=== PATIENT | female | born 1950 | race Caucasian/White ===

== ENCOUNTER 2020-05-05 12:46 | Inpatient (IN) | payer MEDICARE ==
[~2020-05-05] VITALS: Ht 170.1 cm; Wt 122.2 kg
[~2020-05-05 12:46] MED LIST: CARDIZEM CD180 MG PO; GLIPIZIDE10 MG PO; LISINOPRIL AND1 TA1 PO; METFORMIN500 MG PO; METOPROLOL SR50 MG PO; NOVOLOG 70/30 M10 ML; NOVOLOG MIX 70/33 ML; PERCOCET 325 MG1 TA2 PO
[2020-05-05 12:55] VITALS: BP 146/82
--- NOTE | 2020-05-05 13:10 | NUR ---
BED ON FOWLERS POSITION PER PT REQUEST BED IN LOWEST POSITION BED RAILS UP X 2 CALL LIGHT IN REACH PT REQUEST WATER
[2020-05-05] MEDS ORDERED: FUROSEMIDE40 MG PO (13:19)
[2020-05-05] MEDS ORDERED: TELMISARTAN40 M1 PO (13:20)
[2020-05-05] MEDS ORDERED: MINIPRESS2 M2 PO (13:21)
--- NOTE | 2020-05-05 13:29 | NUR ---
PATIENT RESTING AT THIS TIME. CALL LIGHT IN REACH. PROVIDER WATER THAT WAS APPROVED BY PHYSICIAN. WILL CONTINUE TO MONITOR PT.
[2020-05-05 13:35] LABS: BASO % 0.1 % (0.0-1.0); EOS % 0.1 % (1.0-4.0); HEMATOCRIT 36.2 % (37.0-47.0); LYMPH # 0.5 10*3/uL (1.3-4.4); LYMPH % 7.5 % (27.0-41.0); MEAN CELL VOLUME 88.5 fl (81.0-99.0); MEAN CORPUSCULAR HGB 28.4 pg (27.0-31.0); MEAN PLATELET VOLUME 9.3 fl (9.6-12.3); MONO # 0.4 10*3/uL (0.1-1.0); MONO % 6.4 % (3.0-9.0); NEUT # 5.7 10*3/uL (2.3-7.9); NEUT % 85.5 % (47.0-73.0); PLATELET COUNT AUTOMATED 376 10*3/uL (130-400); RED BLOOD COUNT 4.09 10*6/uL (4.10-5.10); RED CELL DISTRI WIDTH 13.3 % (0-14.5); WHITE BLOOD COUNT 6.7 10*3/uL (4.8-10.8)
[2020-05-05 13:50] LABS: ALBUMIN 2.5 gm/dl (3.1-4.5); ALKALINE PHOSPHATASE 83 U/L (45-117); BUN 15 mg/dl (7-24); CHLORIDE 103 mmol/L (98-107); CREATININE 0.71 mg/dL (0.55-1.02); POTASSIUM 4.2 mmol/L (3.5-5.1); SGOT/AST 51 IU/L (3-35); SGPT/ALT 31 U/L (12-78); SODIUM 135 mmol/L (136-145); TOTAL PROTEIN 7.1 gm/dL (6.4-8.2)
[2020-05-05 13:51] LABS: TROPONIN I < 0.015 ng/ml (<0.045)
--- NOTE | 2020-05-05 13:58 | NUR ---
THE PATIENT VERBALIZES PERMISSION TO GIVE HER DAUGHTER ARJUN AN UPDATE REGARDING HER VISIT.
--- NOTE | 2020-05-05 14:02 | NUR ---
I SPOKE TO THE PATIENTS DAUGHTER AND UPDATED HER ON HER MOTHERS VISIT. HER DAUGHTER ARJUN LEFT HER TELEPHONE NUMBER IF NEED TO GET IN CONTACT WITH HER. DAUGHTERS NAME IS ARJUN AND HER PHONE NUMBER IS [phone]
--- NOTE | 2020-05-05 15:00 | NUR ---
PATIENT ASSISTED TO THE BED SIDE COMMODE. PT DID VOID. ASSISTED BACK TO BED. PATIENT PROVIDED MORE ICE CHIPS. RESTING AT THIS TIME. CALL LIGHT IN REACH. WILL CONTINUE TO MONITOR PT.
--- NOTE | 2020-05-05 16:03 | NUR ---
PHARMACY WAS CONTACTED IN REGARD TO OBTAINING THE PATIENTS ZITHROMAX AND ROCEPHIN. NOTIFIED AND THE STAFF STATES THAT THEY WILL SEND IT DOWN.
--- NOTE | 2020-05-05 16:36 | NUR ---
A CALL TO DR FINLEY OFFICE WAS MADE FOR CONSULT. STAFF STATES THAT HE WILL CALL BACK IN 15-20 MINUTES.
--- NOTE | 2020-05-05 17:02 | NUR ---
DR FINLEY WAS CONTACTED AT [phone] AND WAS NOTIFIED OF THE PATIENT AND HER CURRENT VISIT. DR FINLEY STATED HE WILL CALL BACK IF HE HAS ANY FURTHER QUESTIONS. PATIENT IS RETING AT THIS TIME. WILL CONTINUE TO MONITOR. CALL LIGHT IN REACH.
--- NOTE | 2020-05-05 17:12 | NUR ---
I CONTACTED DR ASHLEY OFFICE AT [phone] AND SPOKE TO THE ANSWERING SERVICES. INFORMATION WAS GIVEN TO THE STAFF STATES THAT THEY WILL CONTACT THE PHYSICIAN.
--- NOTE | 2020-05-05 17:13 | NUR ---
PATIENTS DAUGHTER CALLED FOR AN UPDATE. INFORMED THAT THE PATIENT WAS BEING ADMITTED.
--- NOTE | 2020-05-05 17:25 | NUR ---
I SPOKE TO DR FINLEY REGARDING THE PATIENT. DR FINLEY REQUEST THAT BLOOD GASES BE DRAWN ON THE PATIENT AND THE PATIENT BE STARTED ON 6MG OF DECADRON DAILY FOR THE NEXT [address] FINLEY REQUEST THAT HE BE CALLED WITH THE BLOOD GAS RESULTS.
--- NOTE | 2020-05-05 17:25 | NUR ---
I SPOKE TO DR FINLEY
[2020-05-05 17:31] VITALS: BP 170/81
--- NOTE | 2020-05-05 17:38 | NUR ---
I SPOKE TO DR GUTHRIE REGARDING THE PATIENT. SHE REQUEST THAT A CRP BE ORDERED AND THAT SHE WILL SEE THE PATIENT.
[2020-05-05 17:57] LABS: ABG BASE EXCESS -3.1 mmol/L (-2.0-2.0); ARTERIAL BLOOD GAS PH 7.438 (7.35-7.45)
--- NOTE | 2020-05-05 18:15 | NUR ---
THE 4TH FLOOR WAS CONTACTED REGARDING THE PATIENT. STAFF IS SETTING UP A FILTER FOR THE ROOM.
--- NOTE | 2020-05-05 19:30 | NUR ---
PATIENT TOLERATED A POPSICLE. RESTING. CALL LIGHT IN REACH.
--- NOTE | 2020-05-05 20:16 | NUR ---
PATIENT IS RESTING AT THIS TIME. CALL LIGHT IN REACH. PATIENT HAS NO COMPLAINTS AT THIS TIME.
--- NOTE | 2020-05-05 20:40 | NUR ---
PATIENT IS RESTING AT THIS TIME. CALL LIGHT IN REACH. WILL CONTINUE TO MONITOR.
--- NOTE | 2020-05-05 21:23 | NUR ---
PATIENT IS RESTING AT THIS TIME. CALL LIGHT IN REACH. WILL CONTINUE TO MONITOR PATIENT.
[2020-05-05 21:24] VITALS: BP 159/81
[2020-05-05 22:21] VITALS: BP 150/61
--- NOTE | 2020-05-05 22:21 | NUR ---
A 69, admitted to , under the services of TRACY Whaley DO with a diagnosis of COVID 19. Chief complaint is OB. Patient arrived via bed from ER. Monitor applied. Initial assessment completed. Vital signs taken and recorded. TRACY WHALEY DO notified of admission to the unit. Orders received. See assessment for past medical history, medications and allergies. Patient and/or family oriented to unit. [facility] visitation policy reviewed. Clothing/patient valuable form completed. ONEIL GUERRA
[2020-05-05 22:30] VITALS: BP 156/86
--- NOTE | 2020-05-05 22:30 | NUR ---
PATIENT IS RESTING. SHE IS BEING TAKEN UP TO ROOM 405. RESTING
--- NOTE | 2020-05-05 23:30 | NUR ---
PT REFUSING FLU SWAB AT THIS TIME. PT STATES "IM TIRED AND JUST WANT TO SLEEP. CAN WE DO THIS TOMORROW"
[2020-05-06] VITALS: BP 170/76
--- NOTE | 2020-05-06 00:30 | NUR ---
DR. NETTLES NOTIFED OF ELEVATED BP 170/76. ORDERS RECEIVED
[2020-05-06 07:32] LABS: EOS # 0.1 10*3/uL (0.0-0.4); EOS % 1.6 % (1.0-4.0); HEMATOCRIT 33.1 % (37.0-47.0); LYMPH # 0.8 10*3/uL (1.3-4.4); LYMPH % 16.6 % (27.0-41.0); MEAN CELL VOLUME 89.5 fl (81.0-99.0); MEAN CORPUSCULAR HGB 29.2 pg (27.0-31.0); MEAN CORPUSCULAR HGB CONC 32.6 g/dl (33.0-37.0); MEAN PLATELET VOLUME 9.3 fl (9.6-12.3); MONO # 0.5 10*3/uL (0.1-1.0); NEUT # 3.6 10*3/uL (2.3-7.9); NEUT % 72.2 % (47.0-73.0); PLATELET COUNT AUTOMATED 377 10*3/uL (130-400); RED CELL DISTRI WIDTH 13.3 % (0-14.5)
[2020-05-06 07:50] LABS: ALBUMIN 2.3 gm/dl (3.1-4.5); ALKALINE PHOSPHATASE 78 U/L (45-117); BUN 16 mg/dl (7-24); CHLORIDE 106 mmol/L (98-107); CREATININE 0.76 mg/dL (0.55-1.02); LDH 421 U/L (84-246); POTASSIUM 4.2 mmol/L (3.5-5.1); SGOT/AST 41 IU/L (3-35); SGPT/ALT 25 U/L (12-78); SODIUM 137 mmol/L (136-145); TOTAL PROTEIN 6.6 gm/dL (6.4-8.2)
[2020-05-06 07:52] LABS: CPK 134 U/L (26-192)
[2020-05-06 08:00] VITALS: BP 141/50
--- NOTE | 2020-05-06 09:00 | NUR ---
Janitorial Cleaner in to talk to patient. Patient states lives at home with . There are no steps in the home. Physician: emeli Pharmacy: Home health services: none Patient's level of ADLs: INDEPENDENT Patient has working utilities: all working DME: none Follow-up physician's appointment after d/c: will be made by hospitalist nurse director upon discharge Does patient want to access PORTAL?: no Discharge plan discussed with patient. she states she lives at home with her , she is independent in adls and ambulation, she states she would like to return home when discharged. case management will follow to see if patient is physically able to return home,, covid is pending, she is currently onl 3l/min, no home oxygen. VEGA PHAM
[2020-05-06 09:06] LABS: VITAMIN D, 25-HYDROXY 45.2 ng/mL (30-100)
[2020-05-06 09:07] LABS: FERRITIN 752.6 ng/mL (10.0-291.0)
[2020-05-06 12:00] VITALS: BP 147/64
[2020-05-06 16:00] VITALS: BP 188/72
--- NOTE | 2020-05-06 16:17 | NUR ---
NOTIFIED OF ELEVATED BP
[2020-05-06 20:00] VITALS: BP 152/78
[2020-05-07] VITALS: BP 164/58; BP 180/62
[2020-05-07 04:00] VITALS: BP 186/72
--- NOTE | 2020-05-07 04:01 | NUR ---
NOTIFIED DR. NETTLES OF PATIENT BLOOD PRESSUE, 186/72. SEE NEW ORDERS.
[2020-05-07 05:34] LABS: ALBUMIN 2.3 gm/dl (3.1-4.5); ALKALINE PHOSPHATASE 77 U/L (45-117); BUN 17 mg/dl (7-24); CHLORIDE 105 mmol/L (98-107); CPK 118 U/L (26-192); CREATININE 0.73 mg/dL (0.55-1.02); LDH 407 U/L (84-246); POTASSIUM 4.2 mmol/L (3.5-5.1); SGOT/AST 37 IU/L (3-35); SGPT/ALT 25 U/L (12-78); SODIUM 135 mmol/L (136-145); TOTAL PROTEIN 6.8 gm/dL (6.4-8.2)
[2020-05-07 06:16] LABS: MEAN CELL VOLUME 88.3 fl (81.0-99.0); MEAN CORPUSCULAR HGB 28.6 pg (27.0-31.0); MEAN CORPUSCULAR HGB CONC 32.4 g/dl (33.0-37.0); MEAN PLATELET VOLUME 9.9 fl (9.6-12.3); PLATELET COUNT AUTOMATED 465 10*3/uL (130-400); RED BLOOD COUNT 3.85 10*6/uL (4.10-5.10); WHITE BLOOD COUNT 5.9 10*3/uL (4.8-10.8)
[2020-05-07 07:19] LABS: BURR CELLS FEW; PLATELET SUFFICIENCY HIGH (NORMAL); POLYCHROMASIA SLIGHT; TOTAL CELLS COUNTED 100 #CELLS
[2020-05-07 08:00] VITALS: BP 143/59
[2020-05-07 08:10] LABS: ARTERIAL BLOOD GAS PH 7.464 (7.35-7.45)
--- NOTE | 2020-05-07 09:00 | NUR ---
case management again talked to patient via phone, discussed with her a [place] term [place] [facility] [place] and educated her she would receive 5 days of rehab and 24 hour care. she was receptive to this, covid is pending, given the choice of facilities she chose [facility]. media planner / buyer will send referral to [facility]. case management will follow
--- NOTE | 2020-05-07 11:53 | NUR ---
case management received a message that patient's covid testingis positive. she is unable to be referred to [facility] due to them not taking covid positive patients. supply planner will see what facilities will take a covid positive and talk with patient
[2020-05-07 12:00] VITALS: BP 172/62
--- NOTE | 2020-05-07 12:02 | NUR ---
turnaround planner is having difficulty finding a nursing facility that will accept at cate positive. case management talked with patient again regarding discharge plan and possibly returning home with [facility]. educated her on the services they provide. she states her only problem with going home is she has alot of steps to get into her home and her also has covid and is unable to help her get into her home, educated her that hospital could get her an ambulance ride home, patient was agreeable to this, she chose [facility] to follow her at home. will notify [facility] when patient is medically stable for discharge
[2020-05-07 13:26] LABS: ABG BASE EXCESS -0.1 mmol/L (-2.0-2.0); ARTERIAL BLOOD GAS PH 7.489 (7.35-7.45)
--- NOTE | 2020-05-07 14:39 | NUR ---
patient referal faxed to [facility]
[2020-05-07 17:50] LABS: ABG BASE EXCESS -1.6 mmol/L (-2.0-2.0); ARTERIAL BLOOD GAS PH 7.472 (7.35-7.45)
[2020-05-07 20:00] VITALS: BP 146/54
[2020-05-08] VITALS: BP 146/63
[2020-05-08 06:12] LABS: ALBUMIN 2.8 gm/dl (3.1-4.5); ALKALINE PHOSPHATASE 76 U/L (45-117); BUN 18 mg/dl (7-24); CHLORIDE 103 mmol/L (98-107); CPK 108 U/L (26-192); CREATININE 0.84 mg/dL (0.55-1.02); LDH 399 U/L (84-246); POTASSIUM 3.8 mmol/L (3.5-5.1); SGOT/AST 33 IU/L (3-35); SGPT/ALT 24 U/L (12-78); SODIUM 136 mmol/L (136-145)
[2020-05-08 06:13] LABS: HEMATOCRIT 34.7 % (37.0-47.0); MEAN CELL VOLUME 88.3 fl (81.0-99.0); MEAN CORPUSCULAR HGB 28.8 pg (27.0-31.0); MEAN CORPUSCULAR HGB CONC 32.6 g/dl (33.0-37.0); MEAN PLATELET VOLUME 9.5 fl (9.6-12.3); PLATELET COUNT AUTOMATED 553 10*3/uL (130-400); RED BLOOD COUNT 3.93 10*6/uL (4.10-5.10); RED CELL DISTRI WIDTH 13.1 % (0-14.5); WHITE BLOOD COUNT 7.9 10*3/uL (4.8-10.8)
--- NOTE | 2020-05-08 07:27 | NUR ---
Shift chart check completed.24 HR chart check completed.
[2020-05-08 07:40] LABS: TOTAL CELLS COUNTED 100 #CELLS
[2020-05-08 07:41] LABS: PLATELET SUFFICIENCY HIGH (NORMAL)
[2020-05-08 07:42] LABS: BURR CELLS FEW
[2020-05-08 08:00] VITALS: BP 147/66
[2020-05-08 08:10] VITALS: BP 118/50
[2020-05-08 08:26] LABS: ABG BASE EXCESS 1.5 mmol/L (-2.0-2.0); ARTERIAL BLOOD GAS PH 7.491 (7.35-7.45)
--- NOTE | 2020-05-08 09:00 | NUR ---
case management talks with patient, she states she will return home when discharged and will have [facility], case management will notify [facility] when patient is discharged
--- NOTE | 2020-05-08 10:34 | NUR ---
ON ASSESSMENT PATIENT DOESN'T "FEEL GOOD TODAY". SHE'S "WINDED". OBESITY. EASILY FATIGUED.
[2020-05-08 12:00] VITALS: BP 150/65
[2020-05-08 16:00] VITALS: BP 158/62
[2020-05-08 20:00] VITALS: BP 138/80
--- NOTE | 2020-05-08 21:45 | NUR ---
PT REPOSITIONED SELF IN BED. RESP-EASY AND REGULAR. OXYGEN IN USE. TOLERATED ROUTINE MED WITH NO PROBLEM. BSG-[id number], SEE EMAR. CALL LIGHT IN REACH. SEE SHIFT ASSESSMENT.
[2020-05-09] VITALS: BP 154/53
--- NOTE | 2020-05-09 00:10 | NUR ---
PT RESTING IN BED. RESP-EASY AND REGULAR. OXYGEN IN USE. NO C/O AT THIS TIME. CALL LIGHT IN REACH. SEE SHIFT ASSESSMENT.
--- NOTE | 2020-05-09 04:30 | NUR ---
SLEEPING IN BED, RESP-EASY AND REGULAR. CALL LIGHT IN REACH.
--- NOTE | 2020-05-09 06:00 | NUR ---
RESTING IN BED WITH EYES CLOSED. AWAKENS EASILY. RESP-EASY AND REGULAR. NO C/O AT THIS TIME. CALL LIGHT IN REACH.
[2020-05-09 06:28] LABS: HEMATOCRIT 33.5 % (37.0-47.0); MEAN CELL VOLUME 88.9 fl (81.0-99.0); MEAN CORPUSCULAR HGB 28.4 pg (27.0-31.0); MEAN CORPUSCULAR HGB CONC 31.9 g/dl (33.0-37.0); MEAN PLATELET VOLUME 9.4 fl (9.6-12.3); PLATELET COUNT AUTOMATED 511 10*3/uL (130-400); RED BLOOD COUNT 3.77 10*6/uL (4.10-5.10); WHITE BLOOD COUNT 8.3 10*3/uL (4.8-10.8)
[2020-05-09 06:32] LABS: ALBUMIN 2.6 gm/dl (3.1-4.5); ALKALINE PHOSPHATASE 70 U/L (45-117); BUN 19 mg/dl (7-24); CHLORIDE 104 mmol/L (98-107); POTASSIUM 4.4 mmol/L (3.5-5.1); SGOT/AST 31 IU/L (3-35); SGPT/ALT 24 U/L (12-78); SODIUM 135 mmol/L (136-145); TOTAL PROTEIN 6.5 gm/dL (6.4-8.2)
[2020-05-09 07:01] LABS: PLATELET SUFFICIENCY HIGH (NORMAL); TOTAL CELLS COUNTED 100 #CELLS
[2020-05-09 08:30] LABS: ABG BASE EXCESS 1.4 mmol/L (-2.0-2.0); ARTERIAL BLOOD GAS PH 7.461 (7.35-7.45)
[2020-05-09 12:00] VITALS: BP 121/75
--- NOTE | 2020-05-09 14:55 | NUR ---
0800 Assumed care of pt. Report received, pt AOX4, resting in bed. Bed in low position, call light in reach, all needs met at this time. COVID isolation maintained. Will continue to monitor. 1130 Family member called for update, caller provided password, update given. 1430 Pt received last dose of IV Remdesivir.
[2020-05-09 16:00] VITALS: BP 147/56
[2020-05-09 20:00] VITALS: BP 166/66
[2020-05-10] VITALS (7 sets, daily range): BP systolic 104–171; BP diastolic 49–90
--- NOTE | 2020-05-10 02:27 | NUR ---
DR. PIERCE, RESIDENT LENS EXAMINER, CONTACTED AT THIS TIME CONCERNING PT'S BP. BP HAS BEEN 160-170'S/60'S FOR THIS SHIFT. NO PRN MEDICATIONS ORDERED. PT DENIES ANY CONCERNS. ORDERS RECEIVED. WILL MONITOR CLOSELY FOR ACUTE CHANGES IN CONDITION.
[2020-05-10 06:30] LABS: HEMATOCRIT 34.1 % (37.0-47.0); MEAN CELL VOLUME 88.6 fl (81.0-99.0); MEAN CORPUSCULAR HGB 29.4 pg (27.0-31.0); MEAN CORPUSCULAR HGB CONC 33.1 g/dl (33.0-37.0); MEAN PLATELET VOLUME 9.4 fl (9.6-12.3); NUCLEATED RED BLOOD CELL 0.2 % (0.0-0.0); PLATELET COUNT AUTOMATED 485 10*3/uL (130-400); RED BLOOD COUNT 3.85 10*6/uL (4.10-5.10); RED CELL DISTRI WIDTH 13.3 % (0-14.5); WHITE BLOOD COUNT 9.2 10*3/uL (4.8-10.8)
[2020-05-10 06:46] LABS: ALBUMIN 2.6 gm/dl (3.1-4.5); ALKALINE PHOSPHATASE 71 U/L (45-117); BUN 20 mg/dl (7-24); CHLORIDE 108 mmol/L (98-107); CREATININE 0.67 mg/dL (0.55-1.02); POTASSIUM 3.9 mmol/L (3.5-5.1); SGOT/AST 34 IU/L (3-35); SGPT/ALT 29 U/L (12-78); SODIUM 140 mmol/L (136-145); TOTAL PROTEIN 6.4 gm/dL (6.4-8.2)
[2020-05-10 06:55] LABS: ATYPICAL LYMPHS 1 % (0-0); BURR CELLS FEW; PLATELET SUFFICIENCY HIGH (NORMAL); SCHISTOCYTES FEW; TOTAL CELLS COUNTED 100 #CELLS
[2020-05-10 08:39] LABS: ABG BASE EXCESS 1.6 mmol/L (-2.0-2.0); ARTERIAL BLOOD GAS PH 7.486 (7.35-7.45)
--- NOTE | 2020-05-10 09:13 | NUR ---
0700 Assumed care of pt. Pt AOX4 resting in bed. Pt on 2.5L O2. Clustered care performed due to COVID isolation precautions. VS obtained, pt assessed and daily medications given. Bed in low position, call light within reach. Pt voiding and moving bowels without difficulty. Will continue to monitor. 0830 Respiratory at bedside.
--- NOTE | 2020-05-10 17:30 | NUR ---
1730 PT'S ACCUCHECK RESULT 470, REPEATED FOR RESULT OF 471. CALL TO HOSPITALIST. PER HOSPITALIST, GIVE 22 UNITS NOW, RECHECK PT IN 1 HOUR. WILL CONTINUE TO MONITOR.
--- NOTE | 2020-05-10 18:57 | NUR ---
1857 PT'S ACCUCHECK REPEATED FOR VALUE OF 466. DR CUELLAR NOTIFIED, PER DR, ADDING ORDER FOR ADDITIONAL 22 UNITS HUMALOG. WILL CONTINUE TO MONITOR.
[2020-05-11] VITALS: BP 148/67
[2020-05-11 03:27] VITALS: BP 145/60
[2020-05-11 06:30] LABS: HEMATOCRIT 34.1 % (37.0-47.0); MEAN CELL VOLUME 88.8 fl (81.0-99.0); MEAN CORPUSCULAR HGB 28.4 pg (27.0-31.0); MEAN PLATELET VOLUME 9.3 fl (9.6-12.3); NUCLEATED RED BLOOD CELL 0.3 % (0.0-0.0); PLATELET COUNT AUTOMATED 492 10*3/uL (130-400); RED BLOOD COUNT 3.84 10*6/uL (4.10-5.10); RED CELL DISTRI WIDTH 13.3 % (0-14.5); WHITE BLOOD COUNT 10.3 10*3/uL (4.8-10.8)
[2020-05-11 06:44] LABS: CREATININE 0.67 mg/dL (0.55-1.02)
[2020-05-11 06:51] LABS: TOTAL CELLS COUNTED 100 #CELLS
[2020-05-11 06:52] LABS: BURR CELLS FEW; PLATELET SUFFICIENCY HIGH (NORMAL)
[2020-05-11 08:17] VITALS: BP 116/53
[2020-05-11 08:31] LABS: ABG BASE EXCESS 1.3 mmol/L (-2.0-2.0); ARTERIAL BLOOD GAS PH 7.471 (7.35-7.45)
--- NOTE | 2020-05-11 10:30 | NUR ---
0700 Assumed care of pt. Pt remainas on COVID isolation precautions. Pt AOX4, denies pain. Bed in low position, juanjo light in reach, personal care items provided per pt's request. Pt assessed, VS obtained. Call light in reach. will continue to monitor. 1030 Pt's O2 increased to 4L NC, based on ABG values. Will continue to monitor.
[2020-05-11 12:00] VITALS: BP 150/61
--- NOTE | 2020-05-11 13:15 | NUR ---
patient is a possibly discharge to home in next couple of days. there are no [facility] facilities that will accept a covid positive. case management will notify [facility] when patient is discharged. patient will be testing for home oxygen prior to discharge. city planner will attempt to get patient an ambulance transport home due to covid status and possibly new home oxygen, case management will follow
[2020-05-11 16:59] VITALS: BP 143/58
[2020-05-11 20:00] VITALS: BP 150/56
[2020-05-12] VITALS: BP 185/66
[2020-05-12 06:49] LABS: HEMATOCRIT 33.8 % (37.0-47.0); MEAN CELL VOLUME 89.7 fl (81.0-99.0); MEAN CORPUSCULAR HGB 29.4 pg (27.0-31.0); MEAN CORPUSCULAR HGB CONC 32.8 g/dl (33.0-37.0); MEAN PLATELET VOLUME 9.5 fl (9.6-12.3); PLATELET COUNT AUTOMATED 482 10*3/uL (130-400); RED BLOOD COUNT 3.77 10*6/uL (4.10-5.10); RED CELL DISTRI WIDTH 13.7 % (0-14.5); WHITE BLOOD COUNT 9.8 10*3/uL (4.8-10.8)
[2020-05-12 07:27] LABS: ABG BASE EXCESS 0.6 mmol/L (-2.0-2.0); ARTERIAL BLOOD GAS PH 7.439 (7.35-7.45)
[2020-05-12 07:30] LABS: ALBUMIN 2.5 gm/dl (3.1-4.5); CHLORIDE 106 mmol/L (98-107); POTASSIUM 4.1 mmol/L (3.5-5.1); SODIUM 138 mmol/L (136-145)
[2020-05-12 07:35] LABS: ALKALINE PHOSPHATASE 70 U/L (45-117); BUN 20 mg/dl (7-24); CREATININE 0.73 mg/dL (0.55-1.02); SGOT/AST 20 IU/L (3-35); SGPT/ALT 30 U/L (12-78)
[2020-05-12 07:44] LABS: PLATELET SUFFICIENCY HIGH (NORMAL); TOTAL CELLS COUNTED 100 #CELLS
[2020-05-12 08:00] VITALS: BP 138/59
--- NOTE | 2020-05-12 08:30 | NUR ---
PT RESTING. VSS. LUNG [place] DIM. OCC. PRODUCTIVE COUGH NOTED. ABD.SOFT WITH ACTIVE BOWEL SOUNDS. PT DENIES COMPLAINTS. NO ACUTE DISTRESS NOTED.
--- NOTE | 2020-05-12 11:30 | NUR ---
PATIENT ASSESSED FOR HOME O2, PO 95% HR 71 ON 4L. AFTER 10 MINUTES ON ROOM AIR SPO2 90% HR 73. PATIENT AMBULATED FROM BEDSIDE TO BATHROOM ON ROOM AIR. PATIENT STATES THIS IS THE APPROXIMATE DISTANCE SHE WOULD AMBULATE AT HOME, PATIENT UNABLE TO AMBULATE FURTHER, SPO2 DECREASED TO 89%. AFTER SPENDING SOME TIME IN THE BATHROOM ON ROOM AIR SPO2 DECREASED TO 85%. PATIENT PLACED ON 2L/M AND AMBULATED BACK TO CHAIR AT BEDSIDE. SPO2 REMAINED AT 90% OR GREATER. PATIENT LEFT ON 2 L/M ION [place] NOTIFIED PATIENT DID QUALIFY FOR HOME O2.
[2020-05-12 12:00] VITALS: BP 145/43
--- NOTE | 2020-05-12 12:47 | NUR ---
PT REMANS UP TO CHAIR. VSS. NO ACUTE DISTRESS MOTED.
--- NOTE | 2020-05-12 13:51 | NUR ---
DESIGN PRINTER BALLOON RECEIVED SCRIPT FOR HOME OXGYEN. DESIGN PRINTER BALLOON FAXED REFERRAL TO [facility] AND INFORMED UBALDO THE PATIENT IS A PROBABLE DISCHARGE. SHE STATED SHE WILL HAVE THE ORACLE EBS ARCHITECT BRING A TANK FOR THE PATIENT.
--- NOTE | 2020-05-12 15:23 | NUR ---
CONTACT NUMBER FOR [facility] [phone]. AFTER HOURS CALL LINE WILL NEED TO BE NOTIFIED OF WHEN PATIENT LEAVES. ENTRY LEVEL ACCOUNT EXECUTIVE NOTIFIED [facility]AN[facility] THAT THEY WILL NEED TO BE CALLED WHEN THE PATIENT LEAVES, THERE IS NO DISCHARGE ORDER AT THIS TIME.
[2020-05-12 16:00] VITALS: BP 135/46
[2020-05-12 20:00] VITALS: BP 145/60
--- NOTE | 2020-05-12 20:00 | NUR ---
Patient lying in bed, no distress noted. Patient states she is going home tomorrow. Oxygen tank at nurses station. She has card to call company for home O2. Patient denies any pain, or shortness of breath. Patient left with call light in reach.
--- NOTE | 2020-05-12 23:37 | NUR ---
24 HR chart check completed.
[2020-05-13] VITALS: BP 164/65
[2020-05-13 06:55] LABS: HEMATOCRIT 36.7 % (37.0-47.0); MEAN CELL VOLUME 89.1 fl (81.0-99.0); MEAN CORPUSCULAR HGB 28.6 pg (27.0-31.0); MEAN CORPUSCULAR HGB CONC 32.2 g/dl (33.0-37.0); MEAN PLATELET VOLUME 9.7 fl (9.6-12.3); PLATELET COUNT AUTOMATED 483 10*3/uL (130-400); RED BLOOD COUNT 4.12 10*6/uL (4.10-5.10); RED CELL DISTRI WIDTH 13.7 % (0-14.5); WHITE BLOOD COUNT 9.9 10*3/uL (4.8-10.8)
[2020-05-13 07:28] LABS: ALBUMIN 2.6 gm/dl (3.1-4.5); BUN 19 mg/dl (7-24); CHLORIDE 107 mmol/L (98-107); POTASSIUM 4.2 mmol/L (3.5-5.1); SODIUM 139 mmol/L (136-145)
[2020-05-13 07:39] LABS: ALKALINE PHOSPHATASE 64 U/L (45-117); SGOT/AST 18 IU/L (3-35); SGPT/ALT 28 U/L (12-78); TOTAL PROTEIN 6.2 gm/dL (6.4-8.2)
[2020-05-13 07:58] LABS: ABG BASE EXCESS 2.2 mmol/L (-2.0-2.0); ARTERIAL BLOOD GAS PH 7.459 (7.35-7.45)
[2020-05-13 08:00] VITALS: BP 131/46
[2020-05-13 08:03] LABS: PLATELET SUFFICIENCY HIGH (NORMAL); TOTAL CELLS COUNTED 100 #CELLS
--- NOTE | 2020-05-13 09:00 | NUR ---
case management talks with patient,. she is a possibly discharge to home today, portable oxygen tanks was delivered yesterday and jessica will set home home oxygen when she is discharged. case management will follow
--- NOTE | 2020-05-13 10:20 | NUR ---
Reviewed labs, o2 and pt statements regarding concern over getting into house due to lots of stairs to cling. Dr. Sam states that pt is not ready to go home today anyway after reviewing o2 requirements.
[2020-05-13 12:00] VITALS: BP 122/63
--- NOTE | 2020-05-13 12:55 | NUR ---
Arina from [facility] [phone] called and stated the patients oxygen can be set up at home if patient is discharged today. If patient is NOT discharged today, she will need to have a new home oxygen assessment
[2020-05-13] MEDS ORDERED: VENT7GM INH (13:10)
[2020-05-13] MEDS ORDERED: DECADRON6 M1 PO ×2 (13:11)
--- NOTE | 2020-05-13 13:27 | NUR ---
Notified Dr. Smalls who answered phone for Dr. Armstrong that Dr. Sam states that pt is not ready to be dc today from his standpoint based on this mornings ABGs. States she will pass this on to Dr. Armstrong.
[2020-05-13 16:00] VITALS: BP 130/45
[2020-05-13 20:00] VITALS: BP 124/48
--- NOTE | 2020-05-13 21:00 | NUR ---
Patient resting quietly with no c/o discomfort. Respirations easy and regular. Vital signs stable. No overt distress. OTF [facility]
[2020-05-14] VITALS: BP 152/65
--- NOTE | 2020-05-14 | NUR ---
Patient resting quietly with no c/o discomfort. Respirations easy and regular. Vital signs stable. No overt distress. OTF [facility]
--- NOTE | 2020-05-14 01:09 | NUR ---
24 HR chart check completed.
--- NOTE | 2020-05-14 04:00 | NUR ---
Patient resting quietly with no c/o discomfort. Respirations easy and regular. Vital signs stable. No overt distress. OTF [facility]
[2020-05-14 07:02] LABS: BASO % 0.3 % (0.0-1.0); EOS # 0.1 10*3/uL (0.0-0.4); EOS % 1.6 % (1.0-4.0); HEMATOCRIT 37.5 % (37.0-47.0); LYMPH # 1.8 10*3/uL (1.3-4.4); MEAN CELL VOLUME 90.6 fl (81.0-99.0); MONO # 0.8 10*3/uL (0.1-1.0); NEUT # 5.8 10*3/uL (2.3-7.9); NEUT % 66.5 % (47.0-73.0); PLATELET COUNT AUTOMATED 461 10*3/uL (130-400); RED BLOOD COUNT 4.14 10*6/uL (4.10-5.10); RED CELL DISTRI WIDTH 14.3 % (0-14.5); WHITE BLOOD COUNT 8.8 10*3/uL (4.8-10.8)
[2020-05-14 07:31] LABS: ALBUMIN 2.6 gm/dl (3.1-4.5); ALKALINE PHOSPHATASE 68 U/L (45-117); BUN 20 mg/dl (7-24); CHLORIDE 107 mmol/L (98-107); POTASSIUM 4.3 mmol/L (3.5-5.1); SGOT/AST 24 IU/L (3-35); SGPT/ALT 34 U/L (12-78); SODIUM 139 mmol/L (136-145); TOTAL PROTEIN 6.1 gm/dL (6.4-8.2)
[2020-05-14 08:20] VITALS: BP 118/60
[2020-05-14 08:45] LABS: ARTERIAL BLOOD GAS PH 7.472 (7.35-7.45)
--- NOTE | 2020-05-14 09:09 | NUR ---
O2 INCREASED TO [address] FINLEY. PO2 59 ON 2 L NC.
[2020-05-14 11:35] VITALS: BP 112/60
[2020-05-14 16:00] VITALS: BP 139/56
--- NOTE | 2020-05-14 16:43 | NUR ---
Dr. Chang notified of BSG x2 greater than 400. Glucometer read 435 and 419 on second test. Notified that coverage for > 400 is 22 units. States that is fine and he will review pt meds.
[2020-05-14 20:00] VITALS: BP 117/73
[2020-05-15] VITALS: BP 141/71
[2020-05-15 07:09] LABS: BASO % 0.4 % (0.0-1.0); EOS # 0.1 10*3/uL (0.0-0.4); EOS % 1.7 % (1.0-4.0); HEMATOCRIT 35.8 % (37.0-47.0); LYMPH # 1.3 10*3/uL (1.3-4.4); LYMPH % 16.2 % (27.0-41.0); MEAN CELL VOLUME 92.3 fl (81.0-99.0); MEAN CORPUSCULAR HGB 29.4 pg (27.0-31.0); MEAN CORPUSCULAR HGB CONC 31.8 g/dl (33.0-37.0); MEAN PLATELET VOLUME 10.1 fl (9.6-12.3); MONO # 0.9 10*3/uL (0.1-1.0); MONO % 11.2 % (3.0-9.0); NEUT # 5.6 10*3/uL (2.3-7.9); NEUT % 68.2 % (47.0-73.0); PLATELET COUNT AUTOMATED 377 10*3/uL (130-400); RED BLOOD COUNT 3.88 10*6/uL (4.10-5.10); RED CELL DISTRI WIDTH 14.5 % (0-14.5); WHITE BLOOD COUNT 8.2 10*3/uL (4.8-10.8)
[2020-05-15 07:34] LABS: ALBUMIN 2.4 gm/dl (3.1-4.5); BUN 15 mg/dl (7-24); CHLORIDE 107 mmol/L (98-107); CREATININE 0.68 mg/dL (0.55-1.02); LDH 212 U/L (84-246); POTASSIUM 4.4 mmol/L (3.5-5.1); SGOT/AST 16 IU/L (3-35); SGPT/ALT 27 U/L (12-78); SODIUM 138 mmol/L (136-145); TOTAL PROTEIN 5.6 gm/dL (6.4-8.2)
[2020-05-15 07:35] LABS: ALKALINE PHOSPHATASE 63 U/L (45-117); CPK 28 U/L (26-192)
[2020-05-15 08:00] VITALS: BP 123/62
[2020-05-15 12:00] VITALS: BP 120/54
[2020-05-15 16:00] VITALS: BP 115/57
[2020-05-15 20:00] VITALS: BP 113/42
[2020-05-16] VITALS: BP 126/45
[2020-05-16 07:14] LABS: BASO % 0.3 % (0.0-1.0); EOS # 0.2 10*3/uL (0.0-0.4); EOS % 1.9 % (1.0-4.0); HEMATOCRIT 34.2 % (37.0-47.0); LYMPH # 1.2 10*3/uL (1.3-4.4); LYMPH % 14.6 % (27.0-41.0); MEAN CELL VOLUME 92.7 fl (81.0-99.0); MEAN CORPUSCULAR HGB 29.3 pg (27.0-31.0); MEAN CORPUSCULAR HGB CONC 31.6 g/dl (33.0-37.0); MEAN PLATELET VOLUME 10.4 fl (9.6-12.3); MONO # 0.8 10*3/uL (0.1-1.0); MONO % 10.1 % (3.0-9.0); NEUT # 5.7 10*3/uL (2.3-7.9); NEUT % 71.8 % (47.0-73.0); PLATELET COUNT AUTOMATED 323 10*3/uL (130-400); RED BLOOD COUNT 3.69 10*6/uL (4.10-5.10); RED CELL DISTRI WIDTH 14.6 % (0-14.5); WHITE BLOOD COUNT 7.9 10*3/uL (4.8-10.8)
[2020-05-16 07:32] LABS: ALBUMIN 2.4 gm/dl (3.1-4.5); ALKALINE PHOSPHATASE 62 U/L (45-117); BUN 13 mg/dl (7-24); CHLORIDE 107 mmol/L (98-107); CPK 25 U/L (26-192); CREATININE 0.62 mg/dL (0.55-1.02); LDH 184 U/L (84-246); POTASSIUM 4.1 mmol/L (3.5-5.1); SGOT/AST 18 IU/L (3-35); SGPT/ALT 25 U/L (12-78); SODIUM 140 mmol/L (136-145); TOTAL PROTEIN 5.8 gm/dL (6.4-8.2)
[2020-05-16 08:00] VITALS: BP 125/56
[2020-05-16 10:20] LABS: ABG BASE EXCESS 2.4 mmol/L (-2.0-2.0); ARTERIAL BLOOD GAS PH 7.446 (7.35-7.45)
[2020-05-16 12:00] VITALS: BP 136/72
[2020-05-16 16:00] VITALS: BP 124/48
[2020-05-16 20:00] VITALS: BP 149/63
--- NOTE | 2020-05-16 21:30 | NUR ---
PATIENT RESTING IN BED WITH NO NEEDS MADE. BED IN LOWEST POSITION, CALL LIGHT IN REACH
--- NOTE | 2020-05-16 23:50 | NUR ---
PATIENT 100% ON 4 LITERS. DECREAED TO 2 LITERS, STILL AT 99%
[2020-05-17] VITALS: BP 120/57
--- NOTE | 2020-05-17 03:12 | NUR ---
24 HR chart check completed.
[2020-05-17 06:49] LABS: BASO % 0.3 % (0.0-1.0); EOS # 0.1 10*3/uL (0.0-0.4); EOS % 1.7 % (1.0-4.0); HEMATOCRIT 34.7 % (37.0-47.0); LYMPH # 1.1 10*3/uL (1.3-4.4); LYMPH % 15.4 % (27.0-41.0); MEAN CELL VOLUME 91.8 fl (81.0-99.0); MEAN CORPUSCULAR HGB 28.6 pg (27.0-31.0); MEAN CORPUSCULAR HGB CONC 31.1 g/dl (33.0-37.0); MEAN PLATELET VOLUME 10.3 fl (9.6-12.3); MONO # 0.7 10*3/uL (0.1-1.0); MONO % 10.4 % (3.0-9.0); NEUT # 5.1 10*3/uL (2.3-7.9); NEUT % 71.4 % (47.0-73.0); PLATELET COUNT AUTOMATED 312 10*3/uL (130-400); RED BLOOD COUNT 3.78 10*6/uL (4.10-5.10); RED CELL DISTRI WIDTH 14.6 % (0-14.5); WHITE BLOOD COUNT 7.1 10*3/uL (4.8-10.8)
[2020-05-17 07:42] LABS: ALBUMIN 2.5 gm/dl (3.1-4.5); BUN 13 mg/dl (7-24); CHLORIDE 106 mmol/L (98-107); CREATININE 0.65 mg/dL (0.55-1.02); LDH 182 U/L (84-246); POTASSIUM 4.1 mmol/L (3.5-5.1); SGOT/AST 15 IU/L (3-35); SGPT/ALT 28 U/L (12-78); SODIUM 138 mmol/L (136-145); TOTAL PROTEIN 5.8 gm/dL (6.4-8.2)
[2020-05-17 07:43] LABS: ALKALINE PHOSPHATASE 61 U/L (45-117); CPK 24 U/L (26-192)
[2020-05-17 08:00] VITALS: BP 138/50
[2020-05-17 12:00] VITALS: BP 134/43
[2020-05-17] MEDS ORDERED: AMLODIPINE BESYL5 MG PO (13:13)
[2020-05-17] MEDS ORDERED: XARE20MG PO (13:55)
--- NOTE | 2020-05-17 14:36 | NUR ---
PATIENT SITTING IN CHAIR WITH 3 L NC ON. HOME OXYGEN ORDER IS FOR 3LNC. PATIENT WAS ASSESSED FOR THAT AMOUT. DURING REST THE PATIENT HAD AN SPO2:96%, HEART RATE :113, BLOOD PRESSURE :128/46. DURING AMBULATION THE PATIENT HAD AN SPO2: 92%, HEART RATE :116. THE PATIENT STANDING OF 3 LITERS SHOULD BE EFFECTIVE FOR AT HOME.
--- NOTE | 2020-05-17 16:28 | NUR ---
Discharge instructions reviewed with patient/family. Patient receptive and verbalizes understanding. Follow-up care arranged. Written instructions given to patient/family. ANDREW ISRAEL
== END 2020-05-17 16:28 | disposition home or self-care (01) | DRG 871 ==
LOC: ED 12:46 → 4E 14:50 → EDHOLD 14:50 → 4E 17:44
PROVIDERS: Emergency Medicine; Family Medicine; Internal Medicine Critical Care Medicine; Student in an Organized Health Care Education/Training Program; ADMIT Student in an Organized Health Care Education/Training Program; ATTEND Student in an Organized Health Care Education/Training Program
PROC: XW033E5 Introduction of Remdesivir Anti-infective into Peripheral Vein, Percutaneous Approach, New Technology Group 5 (ICD-10-PCS; principal; 2020-05-07)
DX: A41.9 Sepsis, unspecified organism (principal); U07.1 COVID-19; J12.89 Other viral pneumonia; J96.01 Acute respiratory failure with hypoxia; E43 Unspecified severe protein-calorie malnutrition; E87.1 Hypo-osmolality and hyponatremia; I50.32 Chronic diastolic (congestive) heart failure; D68.59 Other primary thrombophilia; Z68.41 Body mass index [BMI] 40.0-44.9, adult; D64.9 Anemia, unspecified; R65.20 Severe sepsis without septic shock; E11.65 Type 2 diabetes mellitus with hyperglycemia; I11.0 Hypertensive heart disease with heart failure; M19.90 Unspecified osteoarthritis, unspecified site; E83.39 Other disorders of phosphorus metabolism; E66.01 Morbid (severe) obesity due to excess calories; E87.6 Hypokalemia; D72.810 Lymphocytopenia; Z83.3 Family history of diabetes mellitus; Z98.51 Tubal ligation status; Z79.4 Long term (current) use of insulin; Z79.899 Other long term (current) drug therapy

== ENCOUNTER → 2023-09-20 | Outpatient (CLI) | payer MEDICARE ==
[~2023-09-20] MED LIST changes: +AMLODIPINE BESYL5 MG PO; +DECADRON6 M1 PO; +FUROSEMIDE40 MG PO; +MINIPRESS2 M2 PO; +TELMISARTAN40 M1 PO; +VENT7GM INH; +XARE20MG PO
== END | disposition home or self-care (01) ==
LOC: MAMMO 02:23
PROVIDERS: ATTEND Internal Medicine
DX: Z12.31 Encounter for screening mammogram for malignant neoplasm of breast (principal)

== ENCOUNTER → 2023-10-03 | Outpatient (CLI) | payer MEDICARE | END | disposition home or self-care (01) | LOC: MAMMO 02:34 | PROVIDERS: ATTEND Internal Medicine | DX: N63.21 Unspecified lump in the left breast, upper outer quadrant (principal); R92.8 Other abnormal and inconclusive findings on diagnostic imaging of breast ==

== ENCOUNTER → 2023-12-08 | Outpatient (CLI) | payer MEDICARE ==
[2023-12-08 11:40] LABS: BUN 20 mg/dl (9-23); CHLORIDE 101 mmol/L (98-107); POTASSIUM 3.9 mmol/L (3.4-5.1)
== END | disposition home or self-care (01) ==
LOC: LAB 10:48
PROVIDERS: ATTEND Internal Medicine
DX: I10 Essential (primary) hypertension (principal)

== ENCOUNTER → 2023-12-12 | Outpatient (CLI) | payer MEDICARE ==
[~2023-12-12] MED LIST changes: +IOHEXOL 300 MG/ML 100 ML VIAL IV ONE
== END | disposition home or self-care (01) ==
LOC: CT 12-08 09:00
PROVIDERS: ATTEND Internal Medicine
DX: J84.10 Pulmonary fibrosis, unspecified (principal); E27.9 Disorder of adrenal gland, unspecified

== ENCOUNTER → 2024-09-18 | Outpatient (CLI) | payer MEDICARE ==
[~2024-09-18] MED LIST changes: -IOHEXOL 300 MG/ML 100 ML VIAL IV ONE
== END | disposition home or self-care (01) ==
LOC: LAB 11:49
PROVIDERS: ATTEND Internal Medicine Endocrinology, Diabetes & Metabolism
DX: D35.00 Benign neoplasm of unspecified adrenal gland (principal)

== ENCOUNTER → 2024-09-20 | Outpatient (CLI) | payer MEDICARE | END | disposition home or self-care (01) | LOC: LAB 11:44 | PROVIDERS: Student in an Organized Health Care Education/Training Program; ATTEND Student in an Organized Health Care Education/Training Program | DX: D35.00 Benign neoplasm of unspecified adrenal gland (principal) ==

== ENCOUNTER → 2024-09-25 | Outpatient (CLI) | payer MEDICARE | END | disposition home or self-care (01) | LOC: LAB 07:28 | PROVIDERS: ATTEND Internal Medicine Endocrinology, Diabetes & Metabolism | DX: E11.69 Type 2 diabetes mellitus with other specified complication (principal) ==

== ENCOUNTER → 2025-01-14 | Outpatient (CLI) | payer MEDICARE ==
[2025-01-14 09:02] LABS: BASO # 0.0 10*3/uL (0.0-0.1); BASO % 0.3 % (0.0-1.0); EOS # 0.3 10*3/uL (0.0-0.4); EOS % 3.2 % (1.0-4.0); MEAN CELL VOLUME 91.5 fl (81.0-99.0); MEAN CORPUSCULAR HGB 29.9 pg (27.0-31.0); MEAN PLATELET VOLUME 10.0 fl (9.6-12.3); MONO # 0.8 10*3/uL (0.1-1.0); MONO % 7.7 % (3.0-9.0); NEUT # 7.4 10*3/uL (2.3-7.9); NEUT % 70.0 % (47.0-73.0); NUCLEATED RED BLOOD CELL 0.0 % (0.0-0.0); NUCLEATED RED BLOOD CELL 0.0 10*3/uL (0.0-0.0); PLATELET COUNT AUTOMATED 317 10*3/uL (130-400); RED CELL DISTRI WIDTH 14.2 % (0-14.5)
[2025-01-14 09:53] LABS: LDL CHOLESTEROL 85.0 mg/dL (9-159)
== END | disposition home or self-care (01) ==
LOC: LAB 08:45
PROVIDERS: Student in an Organized Health Care Education/Training Program; ATTEND Internal Medicine Endocrinology, Diabetes & Metabolism
DX: I10 Essential (primary) hypertension (principal); E11.69 Type 2 diabetes mellitus with other specified complication